=== PATIENT | female | born 1995 | race African-American/Black ===

== ENCOUNTER 2021-12-20 23:11 | Emergency (ER) | payer MEDICAID ==
[~2021-12-20] VITALS: Ht 165.1 cm; Wt 82.0 kg
[2021-12-20 23:20] VITALS: BP 159/104
== END 2021-12-21 00:34 | disposition left against medical advice (07) ==
LOC: ER 23:11
DX: R51.9 Headache, unspecified (principal); V43.52XA Car driver injured in collision with other type car in traffic accident, initial encounter; Y93.89 Activity, other specified; Y92.410 Unspecified street and highway as the place of occurrence of the external cause
CPT/HCPCS: 99281; C1893